=== PATIENT | female | born 1955 | race Caucasian/White ===

== ENCOUNTER 2017-06-03 20:00 | Inpatient (IN) | payer MEDICARE ==
[2017-06-03 20:58] VITALS: BP 125/67
[2017-06-04] MEDS: Escitalopram Oxalate 5 mg Tab PO SCH (08:18)
[2017-06-04] MEDS ORDERED: Maalox 30 mL Cup PO PRN (15:57)
[2017-06-04] MEDS ORDERED: Magnesium Hydroxide (MOM) 30 mL UDC PO PRN (15:57)
[2017-06-04] MEDS ORDERED: Non-Formulary Item 1 EA (Glucagon,Human Recombinant [Glucagon Emergency Kit] 1 MG) IJ PRN (15:57)
[2017-06-04] MEDS ORDERED: Albuterol/Ipratropium Neb 3 ML AERS HHN PRN (15:57)
[2017-06-04] MEDS ORDERED: Non-Formulary Item 1 EA (Rivaroxaban [Xarelto] 15 MG) PO SCH (17:00)
[2017-06-04] MEDS: INSULIN ASPART SLIDING SCALE 100 UNITS/ML UNIT SUBQ SCH ×2 (17:05→21:28)
[2017-06-04] MEDS ORDERED: GLUCAGON HCl 1 MG KIT IM PRN (17:42)
--- NOTE | 2017-06-04 18:48 | History & Physical ---
ADMIT DATE: 06/04/2017 HISTORY OF PRESENT ILLNESS: The patient is a 62-year-old female with long history of hypertension, diabetes mellitus, coronary artery disease, psychosis, admitted to [facility] Department for evaluation and treatment. The patient denies any chest pain, shortness of breath, nausea, vomiting, fever or chills. PAST MEDICAL HISTORY: Significant for hypertension, coronary artery disease, asthma, obesity, psychosis. PAST SURGICAL HISTORY: Tonsillectomy, cholecystectomy, hysterectomy, appendectomy, coronary artery bypass. ALLERGIES: She is allergic to ZITHROMAX, CODEINE, HYDROMORPHONE. SOCIAL HISTORY: No smoking, no alcohol or drug use. FAMILY HISTORY: Noncontributory. REVIEW OF SYSTEMS: RENAL SYSTEM: No history of chronic renal disorder. CARDIOVASCULAR SYSTEM: She has history of coronary artery disease and hypertension. ENDOCRINE SYSTEM: She has history of diabetes mellitus, no thyroid problem. GASTROINTESTINAL: No upper or lower gastrointestinal bleed. NEUROLOGICAL: She has no seizure disorder. MUSCULOSKELETAL SYSTEM: No muscular dystrophy. HEMATOLOGIC SYSTEM: No bleeding tendancies. RESPIRATORY SYSTEM: No asthma. GENITOURINARY: No dysuria or hematuria. PHYSICAL EXAMINATION: GENERAL: She is awake, alert, oriented. VITAL SIGNS: Temperature 98.3, heart rate 61, blood pressure 125/67. HEENT: Normocephalic. Pupils reacting to light and accommodation. Sclerae clear. NECK: Supple. Negative for lymphadenopathy, JVD or bruit. CHEST: Entry of air bilaterally normal. No rhonchi or wheezing. HEART: S1, S2 normal. No murmur or gallop rhythm. ABDOMEN: Soft, bowel sounds positive. EXTREMITIES: No edema. BACK: No tenderness SKIN: Significant for dryness of both feet. BREASTS, PELVIC, AND RECTAL: Exam done by primary physician. NEUROLOGIC: She is awake, alert, oriented. No focal motor or sensory deficit. Cranial nerves 2 through 12 is intact. ASSESSMENT: 1. Diabetes mellitus. 2. Hypertension. 3. Coronary artery disease. 4. Psychosis. PLAN: The patient admitted to the hospital under Dr. Diaz's service. Medical problem to be addressed during hospitalization is psychosis. Medical problems to be addressed at discharge are diabetes mellitus, hypertension, coronary artery disease. The patient is medically stable for activity. Thank you Dr. Diaz for asking me to see your patient. [facility]# [id number]
[2017-06-04] MEDS: Insulin Detemir 100 units/mL 10mL Vial SUBQ SCH (21:28)
[2017-06-05] MEDS: INSULIN ASPART SLIDING SCALE 100 UNITS/ML UNIT SUBQ SCH ×4 (07:04→21:26)
[2017-06-05] MEDS ORDERED: Non-Formulary Item 1 EA (Multivit,Th Iron,Other Min [Thera-M] 1 TAB) PO SCH (09:00)
[2017-06-05] MEDS: Escitalopram Oxalate 5 mg Tab PO SCH (09:24)
[2017-06-05] MEDS: Aspirin 81mg Chewable Tab PO SCH (09:24)
[2017-06-05] MEDS: Multivitamin w/ Minerals Tab PO SCH (09:25)
--- NOTE | 2017-06-05 14:00 | Internal Medicine Prog Note ---
Internal Medicine Subjective - Subjective Service Date: 06/05/17 Patient seen and examined:: with staff Patient is:: awake, verbal, in bed, confused Per staff patient has:: no adverse event (SHE FEELS BETTER) Internal Medicine Objective - Results Recent Labs: Laboratory Last Values POC Glucose 143 MG/DL (70 - 105) H 06/03/17 20:55 - Physical Exam Vitals and I&O: Vital Signs Temp 98.3 F 06/04/17 05:55 Pulse 74 06/04/17 20:37 Resp 18 06/04/17 20:37 BP 161/70 06/04/17 16:45 Pulse Ox 97 06/04/17 20:37 Intake & Output 06/04/17 06/05/17 06/05/17 18:59 06:59 18:59 Intake Total 400 120 Balance 400 120 Intake: Oral 400 120 Other: # Voids 1 3 Active Medications: Current Medications Acetaminophen (Tylenol) 650 mg PO Q6H PRN PRN Reason: mild pain (1-3) Stop: 08/03/17 15:56 Last Admin: 06/04/17 16:43 Dose: 650 mg Al Hydrox/Mg Hydrox/Simethicone (Maalox) 30 ml PO Q4H PRN PRN Reason: Heartburn Stop: 08/03/17 15:56 Albuterol/Ipratropium (Duoneb Neb) 3 ml HHN Q4HRT PRN PRN Reason: Wheezing Stop: 08/03/17 15:56 Aspirin (Aspirin Chewable) 81 mg PO DAILY [facility] Stop: 08/04/17 08:59 Last Admin: 06/05/17 09:24 Dose: Not Given Bisacodyl (Dulcolax 10 Mg Supp) 10 mg RC DAILY PRN PRN Reason: Constipation Stop: 08/03/17 15:56 Carvedilol (Coreg) 6.25 mg PO BID [facility] Stop: 08/03/17 16:59 Last Admin: 06/05/17 13:40 Dose: Not Given Clopidogrel Bisulfate (Plavix) 75 mg PO DAILY [facility] Stop: 08/04/17 08:59 Last Admin: 06/05/17 09:24 Dose: Not Given Docusate Sodium (Colace) 100 mg PO DAILY PRN PRN Reason: Constipation Stop: 08/03/17 15:56 Escitalopram Oxalate (Lexapro) 5 mg PO DAILY [facility] PRN Reason: Protocol Stop: 08/03/17 08:59 Last Admin: 06/05/17 09:24 Dose: Not Given Fluocinonide (Lidex 0.05%) 1 appl TP BID [facility] Stop: 08/03/17 16:59 Last Admin: 06/05/17 13:41 Dose: Not Given Glucagon (Glucagen) 1 mg IM PRN PRN PRN Reason: LOW BLOOD SUGAR Stop: 08/03/17 17:41 Insulin Aspart (Novolog Insulin Sliding Scale) 0 units SUBQ ACHS [facility] PRN Reason: Protocol Stop: 08/03/17 16:29 Last Admin: 06/05/17 11:45 Dose: Not Given Insulin Detemir (Levemir Insulin) 35 units SUBQ HS [facility] PRN Reason: Protocol Stop: 08/03/17 20:59 Last Admin: 06/04/17 21:28 Dose: Not Given Lisinopril (Zestril) 5 mg PO DAILY [facility] Stop: 08/03/17 16:08 Last Admin: 06/05/17 13:41 Dose: Not Given Magnesium Hydroxide (Milk Of Magnesia) 30 ml PO DAILY PRN PRN Reason: Constipation Stop: 08/03/17 15:56 Nitroglycerin (Nitrostat) 0.4 mg SL Q5MIN PRN PRN Reason: Chest Pain Stop: 08/03/17 15:56 Rivaroxaban (Xarelto) 15 mg PO DAILY [facility] Stop: 08/04/17 08:59 Last Admin: 06/05/17 09:25 Dose: Not Given General: alert HEENT: NC/AT, PERRLA, EOMI, anicteric sclerae, throat clear Neck: Supple, No JVD, No thyromegaly, +2 carotid pulse wo bruit, No LAD, + JVD Lungs: CTAB Cardiovascular: RRR, Normal S1, Normal S2 Abdomen: non-tender, non-distended Neurological: no change Internal Medicine Assmt/Plan - Assessment Assessment: 1.DM. 2.HTN. 3.CAD. 4.PSYCHOSIS - Plan Plan: CONTINUE ON CURRENT MEDICATION AND DIET.
[2017-06-05] MEDS: Insulin Detemir 100 units/mL 10mL Vial SUBQ SCH (21:36)
--- NOTE | 2017-06-06 02:13 | Psychosocial Evaluation ---
DATE OF SERVICE: 06/03/2017 PSYCHIATRIC INITIAL EVALUATION AND MENTAL STATUS EXAM PATIENT'S AGE: 62-year-old. SEX: Female. PHYSICIAN: Arina Diaz MD, MPH CHIEF COMPLAINT: Aggressive and combative behavior. HISTORY OF PRESENT ILLNESS: The patient is a 62-year-old female who was admitted to the hospital because of increased agitation and because of aggressive behavior. The patient has been aggressive towards nursing staff and has been resisting care and refusing treatment and also refusing to [facility] or drink [facility]. She also has been difficult to follow directions and resisting to hear. The patient also has a history of depression and has been in depressed and angry mood lately. The patient is still in angry mood and resisting care and is depressed. She also has been complaining of severe pain and has been taking morphine and also the patient is diabetic and has been irritable and also refusing her medical treatment. The patient was extremely agitated and irritable and the patient has to be given Zyprexa 10 mg and Ativan 1 mg prior to her admission. The patient was then brought into [facility]. The patient currently is sedated and calm and she was not able to answer all of my questions because of her sedation. She was still refusing treatment at times. PAST PSYCHIATRIC HISTORY: The patient has history of depression. PAST MEDICAL HISTORY: The patient has history of diabetes mellitus as well as chronic obstructive pulmonary disease, anemia and gastroesophageal reflux disease and hypertension. SOCIAL HISTORY: Not known alcohol or street drug use. ALLERGIES: Codeine, Dilaudid, morphine, and erythromycin. MENTAL STATUS EXAMINATION: The patient appears slightly older than her stated age. Disheveled. Currently sedated and I was not able to get much of the information from the patient because of her sedation. Did not answer question regarding suicide or homicide or regarding hallucinations or delusions. The patient is sedated and unable to assess her orientation or memory at this time. Poor insight and she was refusing to eat or to take medications. Poor judgment and she was fighting and violent with staff earlier. ASSESSMENT: Primary diagnosis: Major depression, severe, recurrent, with psychotic features. TREATMENT PLAN: We will continue monitoring her condition and her behavior closely. Also, we will restart Lexapro. Also, we will work on her anger and irritability and we will continue to follow up. ESTIMATED LENGTH OF STAY: 5-7 days. THE PATIENT'S STRENGTHS AND WEAKNESSES: The patient's strength is not clear at this time. Weaknesses: Her poor impulse control and uncooperative with treatment and refusing medications and to eat. AFTER DISCHARGE PLAN: The patient will return to her previous placement. Otherwise, she will need placement. Outpatient treatment and followup will continue as an outpatient. CRITERIA FOR DISCHARGE: The patient will not be agitated or psychotic and will stabilize psychotropic medications and will establish outpatient treatment plans. [facility]# [id number]
[2017-06-06] MEDS: INSULIN ASPART SLIDING SCALE 100 UNITS/ML UNIT SUBQ SCH ×3 (06:29→22:51)
[2017-06-06] MEDS: Aspirin 81mg Chewable Tab PO SCH (10:49)
[2017-06-06] MEDS: Escitalopram Oxalate 5 mg Tab PO SCH (10:50)
[2017-06-06] MEDS: Multivitamin w/ Minerals Tab PO SCH (10:51)
--- NOTE | 2017-06-06 16:14 | Progress Notes ---
DATE: SUBJECTIVE: Chart reviewed and the patient interviewed. Also discussed the patient's condition with the staff and reviewed records and labs. The patient continued to be extremely agitated and extremely paranoid. The patient also still in angry and in irritable mood. She also is still guarded and withdrawn and wants to be left alone and is refusing care and treatment and refusing medications. She also is still disheveled and irritable and uncooperative with the staff. The patient needs lots of redirections. ASSESSMENT: The patient is still combative and depressed and can be dangerous to others. TREATMENT PLAN: We will continue to monitor her behavior and her condition closely. Also, continue to work on her irritability and denial of her illness and we will continue to work on her compliance with medications. Also, we will place the patient on 5250 hold for grave disability. JOB# [id number]
--- NOTE | 2017-06-06 17:55 | General Progress Note ---
Subjective - Review of Systems Service Date: 06/06/17 Subjective: awake and alert no distress Objective - Results Recent Labs: Laboratory Last Values POC Glucose 143 MG/DL (70 - 105) H 06/03/17 20:55 - Physical Exam Vitals and I&O: Vital Signs Temp 97.7 F 06/06/17 17:35 Pulse 92 06/06/17 17:35 Resp 20 06/06/17 17:35 BP 150/83 06/06/17 17:35 Pulse Ox 95 06/06/17 17:35 Active Medications: Current Medications Acetaminophen (Tylenol) 650 mg PO Q6H PRN PRN Reason: mild pain (1-3) Stop: 08/03/17 15:56 Last Admin: 06/04/17 16:43 Dose: 650 mg Al Hydrox/Mg Hydrox/Simethicone (Maalox) 30 ml PO Q4H PRN PRN Reason: Heartburn Stop: 08/03/17 15:56 Albuterol/Ipratropium (Duoneb Neb) 3 ml HHN Q4HRT PRN PRN Reason: Wheezing Stop: 08/03/17 15:56 Aspirin (Aspirin Chewable) 81 mg PO DAILY [facility] Stop: 08/04/17 08:59 Last Admin: 06/06/17 10:49 Dose: Not Given Bisacodyl (Dulcolax 10 Mg Supp) 10 mg RC DAILY PRN PRN Reason: Constipation Stop: 08/03/17 15:56 Carvedilol (Coreg) 6.25 mg PO BID [facility] Stop: 08/03/17 16:59 Last Admin: 06/06/17 16:26 Dose: 6.25 mg Clopidogrel Bisulfate (Plavix) 75 mg PO DAILY [facility] Stop: 08/04/17 08:59 Last Admin: 06/06/17 10:50 Dose: Not Given Docusate Sodium (Colace) 100 mg PO DAILY PRN PRN Reason: Constipation Stop: 08/03/17 15:56 Escitalopram Oxalate (Lexapro) 5 mg PO DAILY [facility] PRN Reason: Protocol Stop: 08/03/17 08:59 Last Admin: 06/06/17 10:50 Dose: Not Given Fluocinonide (Lidex 0.05%) 1 appl TP BID [facility] Stop: 08/03/17 16:59 Last Admin: 06/06/17 10:50 Dose: Not Given Glucagon (Glucagen) 1 mg IM PRN PRN PRN Reason: LOW BLOOD SUGAR Stop: 08/03/17 17:41 Insulin Aspart (Novolog Insulin Sliding Scale) 0 units SUBQ ACHS [facility] PRN Reason: Protocol Stop: 08/03/17 16:29 Last Admin: 06/06/17 12:08 Dose: Not Given Insulin Detemir (Levemir Insulin) 35 units SUBQ HS [facility] PRN Reason: Protocol Stop: 08/03/17 20:59 Last Admin: 06/05/17 21:36 Dose: 35 units Lisinopril (Zestril) 5 mg PO DAILY [facility] Stop: 08/03/17 16:08 Last Admin: 06/06/17 10:50 Dose: Not Given Magnesium Hydroxide (Milk Of Magnesia) 30 ml PO DAILY PRN PRN Reason: Constipation Stop: 08/03/17 15:56 Nitroglycerin (Nitrostat) 0.4 mg SL Q5MIN PRN PRN Reason: Chest Pain Stop: 08/03/17 15:56 Rivaroxaban (Xarelto) 15 mg PO DAILY [facility] Stop: 08/04/17 08:59 Last Admin: 06/06/17 10:51 Dose: Not Given General: Alert, No acute distress HEENT: Atraumatic, PERRLA Neck: Supple, JVD Cardiovascular: Regular rate, Normal S1, Normal S2 Lungs: Clear to auscultation Abdomen: Bowel sounds Assessment/Plan - Assessment Assessment: 1.DM. 2.HTN. 3.CAD. 4.PSYCHOSIS - Plan Plan: cont current treatment
[2017-06-06] MEDS: Insulin Detemir 100 units/mL 10mL Vial SUBQ SCH (22:43)
[2017-06-07] MEDS: INSULIN ASPART SLIDING SCALE 100 UNITS/ML UNIT SUBQ SCH ×4 (07:02→21:00)
[2017-06-07] MEDS: Aspirin 81mg Chewable Tab PO SCH (09:00)
[2017-06-07] MEDS: Escitalopram Oxalate 5 mg Tab PO SCH (09:12)
[2017-06-07] MEDS: Multivitamin w/ Minerals Tab PO SCH (09:13)
--- NOTE | 2017-06-07 13:47 | General Progress Note ---
Subjective - Review of Systems Service Date: 06/07/17 Subjective: awake and alert no distress Objective - Results Recent Labs: Laboratory Last Values POC Glucose 143 MG/DL (70 - 105) H 06/03/17 20:55 - Physical Exam Vitals and I&O: Vital Signs Temp 97.7 F 06/06/17 17:35 Pulse 72 06/07/17 09:12 Resp 18 06/07/17 07:21 BP 113/77 06/07/17 09:12 Pulse Ox 95 06/07/17 07:20 Active Medications: Current Medications Acetaminophen (Tylenol) 650 mg PO Q6H PRN PRN Reason: mild pain (1-3) Stop: 08/03/17 15:56 Last Admin: 06/04/17 16:43 Dose: 650 mg Al Hydrox/Mg Hydrox/Simethicone (Maalox) 30 ml PO Q4H PRN PRN Reason: Heartburn Stop: 08/03/17 15:56 Albuterol/Ipratropium (Duoneb Neb) 3 ml HHN Q4HRT PRN PRN Reason: Wheezing Stop: 08/03/17 15:56 Aspirin (Aspirin Chewable) 81 mg PO DAILY [facility] Stop: 08/04/17 08:59 Last Admin: 06/07/17 09:00 Dose: 81 mg Bisacodyl (Dulcolax 10 Mg Supp) 10 mg RC DAILY PRN PRN Reason: Constipation Stop: 08/03/17 15:56 Carvedilol (Coreg) 6.25 mg PO BID [facility] Stop: 08/03/17 16:59 Last Admin: 06/07/17 09:00 Dose: 6.25 mg Clopidogrel Bisulfate (Plavix) 75 mg PO DAILY [facility] Stop: 08/04/17 08:59 Last Admin: 06/07/17 09:12 Dose: 75 mg Docusate Sodium (Colace) 100 mg PO DAILY PRN PRN Reason: Constipation Stop: 08/03/17 15:56 Escitalopram Oxalate (Lexapro) 5 mg PO DAILY [facility] PRN Reason: Protocol Stop: 08/03/17 08:59 Last Admin: 06/07/17 09:12 Dose: 5 mg Fluocinonide (Lidex 0.05%) 1 appl TP BID [facility] Stop: 08/03/17 16:59 Last Admin: 06/07/17 08:59 Dose: 1 appl Glucagon (Glucagen) 1 mg IM PRN PRN PRN Reason: LOW BLOOD SUGAR Stop: 08/03/17 17:41 Insulin Aspart (Novolog Insulin Sliding Scale) 0 units SUBQ ACHS [facility] PRN Reason: Protocol Stop: 08/03/17 16:29 Last Admin: 06/07/17 07:02 Dose: Not Given Insulin Detemir (Levemir Insulin) 35 units SUBQ HS [facility] PRN Reason: Protocol Stop: 08/03/17 20:59 Last Admin: 06/06/17 22:43 Dose: 35 units Lisinopril (Zestril) 5 mg PO DAILY [facility] Stop: 08/03/17 16:08 Last Admin: 06/07/17 09:12 Dose: 5 mg Magnesium Hydroxide (Milk Of Magnesia) 30 ml PO DAILY PRN PRN Reason: Constipation Stop: 08/03/17 15:56 Nitroglycerin (Nitrostat) 0.4 mg SL Q5MIN PRN PRN Reason: Chest Pain Stop: 08/03/17 15:56 Rivaroxaban (Xarelto) 15 mg PO DAILY [facility] Stop: 08/04/17 08:59 Last Admin: 06/07/17 09:13 Dose: 15 mg General: Alert, No acute distress HEENT: Atraumatic, PERRLA Neck: Supple, JVD Cardiovascular: Regular rate, Normal S1, Normal S2 Lungs: Clear to auscultation Abdomen: Bowel sounds Assessment/Plan - Assessment Assessment: 1.DM. 2.HTN. 3.CAD. 4.PSYCHOSIS - Plan Plan: cont current treatment
[2017-06-07] MEDS: Insulin Detemir 100 units/mL 10mL Vial SUBQ SCH (21:44)
[2017-06-08] MEDS: INSULIN ASPART SLIDING SCALE 100 UNITS/ML UNIT SUBQ SCH ×4 (06:57→20:56)
[2017-06-08] MEDS: Escitalopram Oxalate 5 mg Tab PO SCH (10:14)
[2017-06-08] MEDS: Aspirin 81mg Chewable Tab PO SCH (10:14)
[2017-06-08] MEDS: Multivitamin w/ Minerals Tab PO SCH (10:15)
--- NOTE | 2017-06-08 10:48 | Progress Notes ---
DATE: SUBJECTIVE: Chart reviewed. The patient interviewed. Also discussed the patient's condition with the staff and reviewed records and labs. The patient continues to be ____ easily irritable and easily agitated ____ with the staff and also said the patient is trying to harm herself, sometimes ____. She also is still combative and she is still aggressive and refused to take her medications. In spite of explaining to the patient the importance of the medicine and benefits of ____ and the patient is still resisting care and in irritable mood. ASSESSMENT: The patient is still confused and forgetful. TREATMENT PLAN: We will continue monitoring her behavior and her condition closely and continue to follow up. [facility]# [id number]
[2017-06-08] MEDS: Insulin Detemir 100 units/mL 10mL Vial SUBQ SCH (20:56)
--- NOTE | 2017-06-08 23:51 | Internal Medicine Prog Note ---
Internal Medicine Subjective - Subjective Service Date: 06/08/17 Patient seen and examined:: without staff Patient is:: awake, verbal, in bed, confused Per staff patient has:: no adverse event (SHE FEELS BETTER) Internal Medicine Objective - Results Recent Labs: Laboratory Last Values POC Glucose 161 MG/DL (70 - 105) H 06/08/17 20:41 - Physical Exam Vitals and I&O: Vital Signs Temp 98.9 F 06/08/17 19:22 Pulse 91 06/08/17 19:22 Resp 20 06/08/17 19:22 BP 155/66 06/08/17 19:22 Pulse Ox 94 06/08/17 19:22 Active Medications: Current Medications Acetaminophen (Tylenol) 650 mg PO Q6H PRN PRN Reason: mild pain (1-3) Stop: 08/03/17 15:56 Last Admin: 06/04/17 16:43 Dose: 650 mg Al Hydrox/Mg Hydrox/Simethicone (Maalox) 30 ml PO Q4H PRN PRN Reason: Heartburn Stop: 08/03/17 15:56 Albuterol/Ipratropium (Duoneb Neb) 3 ml HHN Q4HRT PRN PRN Reason: Wheezing Stop: 08/03/17 15:56 Aspirin (Aspirin Chewable) 81 mg PO DAILY [facility] Stop: 08/04/17 08:59 Last Admin: 06/08/17 10:14 Dose: Not Given Bisacodyl (Dulcolax 10 Mg Supp) 10 mg RC DAILY PRN PRN Reason: Constipation Stop: 08/03/17 15:56 Carvedilol (Coreg) 6.25 mg PO BID [facility] Stop: 08/03/17 16:59 Last Admin: 06/08/17 17:46 Dose: Not Given Clopidogrel Bisulfate (Plavix) 75 mg PO DAILY [facility] Stop: 08/04/17 08:59 Last Admin: 06/08/17 10:14 Dose: Not Given Docusate Sodium (Colace) 100 mg PO DAILY PRN PRN Reason: Constipation Stop: 08/03/17 15:56 Escitalopram Oxalate (Lexapro) 5 mg PO DAILY [facility] PRN Reason: Protocol Stop: 08/03/17 08:59 Last Admin: 06/08/17 10:14 Dose: Not Given Fluocinonide (Lidex 0.05%) 1 appl TP BID [facility] Stop: 08/03/17 16:59 Last Admin: 06/08/17 17:46 Dose: Not Given Glucagon (Glucagen) 1 mg IM PRN PRN PRN Reason: LOW BLOOD SUGAR Stop: 08/03/17 17:41 Insulin Aspart (Novolog Insulin Sliding Scale) 0 units SUBQ ACHS [facility] PRN Reason: Protocol Stop: 08/03/17 16:29 Last Admin: 06/08/17 20:56 Dose: Not Given Insulin Detemir (Levemir Insulin) 35 units SUBQ HS [facility] PRN Reason: Protocol Stop: 08/03/17 20:59 Last Admin: 06/08/17 20:56 Dose: Not Given Lisinopril (Zestril) 5 mg PO DAILY [facility] Stop: 08/03/17 16:08 Last Admin: 06/08/17 10:14 Dose: Not Given Magnesium Hydroxide (Milk Of Magnesia) 30 ml PO DAILY PRN PRN Reason: Constipation Stop: 08/03/17 15:56 Nitroglycerin (Nitrostat) 0.4 mg SL Q5MIN PRN PRN Reason: Chest Pain Stop: 08/03/17 15:56 Ondansetron HCl (Zofran Odt) 4 mg PO Q6H PRN PRN Reason: Nausea / Vomiting Stop: 08/06/17 16:08 Rivaroxaban (Xarelto) 15 mg PO DAILY [facility] Stop: 08/04/17 08:59 Last Admin: 06/08/17 10:15 Dose: Not Given General: alert HEENT: NC/AT, PERRLA, EOMI, anicteric sclerae, throat clear Neck: Supple, No JVD, No thyromegaly, +2 carotid pulse wo bruit, No LAD, + JVD Lungs: CTAB Cardiovascular: RRR, Normal S1, Normal S2 Abdomen: non-tender, non-distended Neurological: no change Internal Medicine Assmt/Plan - Assessment Assessment: 1.DM. 2.HTN. 3.CAD. 4.PSYCHOSIS - Plan Plan: CONTINUE ON CURRENT MEDICATION AND DIET. Nutritional Asmnt/Malnutr-PDOC - Dietary Evaluation Malnutrition Findings (Please click <Entered> for more info): Nutritional Asmnt/Malnutrition Start: 06/08/17 14: 59 Text: Status: Complete Freq: Document 06/08/17 14:59 LCLEEG (Rec: 06/08/17 15:14 [email or web address] [id number]) Nutritional Asmnt/Malnutrition Patient General Information Nutritional Screening Moderate Risk Diagnosis psychosis Pertinent Medical Hx/Surgical Hx THN, CAD, asthma, obesity, psychosis, tonsillectomy, cholecystectomy, hysterectomy, appendectomy, conorary artery bypass Subjective Information Pt seen resting in bed at time of visit. Spoke with RN, RN reported pt had 2 episodes of vomiting yetserday d/t stomach pain, no vomiting today but still had nausea. Per pt she had BM a week ago. Pt refused to eat or drinking anything, refused meds. MD notified by RN. Current Diet Order/ Nutrition Support CCHO 60gm Pertinent Medications glucagen, novolog, levemir Pertinent Labs 06/03 POC 143 Nutritional Hx/Data Height 1.63 m Height (Calculated Centimeters) 162.6 Current Weight (lbs) 103.873 kg Weight (Calculated Kilograms) 103.9 Weight (Calculated Grams) 837814.7 [place] Body Weight 120 % [place] Body Weight 190 Body Mass Index (BMI) 39.3 Weight Status Obese GI Symptoms GI Symptoms Nausea Vomitting Last BM a week ago per pt Difficult in: None Skin Integrity/Comment: blakened to left dosal foot, rash, dryness, dryness Current %PO Poor (25-49%) Estimated Nutritional Goals BEE in Kcals: Adj wt of IBW Calories/Kcals/Kg 25-30 Kcals Calculated 2982-3219 Protein: Adj wt of IBW Protein g/k-1.2 Protein Calculated 67-80 Fluid: ml 1675-2010ml (1ml/kcal) Nutritional Problem 1. Problem Problem inadequate food/fluid intake Etiology N/V, stomach pain Signs/Symptoms: pt refusing oral intake x 2 days Malnutrition Alert Protein-Calorie Malnutrition N/A Is there a minimum of two criteria No selected? Query Text:Check all the applicable criteria. A minimum of two criteria are recommended for diagnosis of either severe or non-severe malnutrition. Intervention/Recommendation Comments 1. Recommend to give pt clear liquid at this time d/t N/V. 2. Monitor PO intake, GI function, wt, labs and skin integrity 3. F/U as high risk in 2-3 days, 06/10-06/11 Expected Outcomes/Goals Expected Outcomes/Goals 1. PO intake to meet at least 75% of nutritional needs, no N /V 2. Wt stability, skin to remain intact, labs to approach WNL.
[2017-06-09] MEDS: INSULIN ASPART SLIDING SCALE 100 UNITS/ML UNIT SUBQ SCH ×4 (06:58→21:26)
[2017-06-09] MEDS: Aspirin 81mg Chewable Tab PO SCH (10:14)
[2017-06-09] MEDS: Escitalopram Oxalate 5 mg Tab PO SCH (10:17)
[2017-06-09] MEDS: Multivitamin w/ Minerals Tab PO SCH (10:24)
--- NOTE | 2017-06-09 19:58 | Internal Medicine Prog Note ---
Internal Medicine Subjective - Subjective Service Date: 06/09/17 Patient seen and examined:: with staff (SHE IS DOING BETTER.) Patient is:: awake, verbal, in bed, confused Per staff patient has:: no adverse event (SHE FEELS BETTER) Internal Medicine Objective - Results Recent Labs: Laboratory Last Values POC Glucose 122 MG/DL (70 - 105) H 06/09/17 05:37 - Physical Exam Vitals and I&O: Vital Signs Temp 98.8 F 06/09/17 07:04 Pulse 77 06/09/17 10:25 Resp 18 06/09/17 07:12 BP 136/58 06/09/17 10:25 Pulse Ox 94 06/09/17 07:12 Intake & Output 06/09/17 06/09/17 06/10/17 06:59 18:59 06:59 Intake Total 320 420 Balance 320 420 Intake: Oral 320 420 Other: # Voids 1 100 Active Medications: Current Medications Acetaminophen (Tylenol) 650 mg PO Q6H PRN PRN Reason: mild pain (1-3) Stop: 08/03/17 15:56 Last Admin: 06/04/17 16:43 Dose: 650 mg Al Hydrox/Mg Hydrox/Simethicone (Maalox) 30 ml PO Q4H PRN PRN Reason: Heartburn Stop: 08/03/17 15:56 Albuterol/Ipratropium (Duoneb Neb) 3 ml HHN Q4HRT PRN PRN Reason: Wheezing Stop: 08/03/17 15:56 Aspirin (Aspirin Chewable) 81 mg PO DAILY V[facility]ICIUS Stop: 08/04/17 08:59 Last Admin: 06/09/17 10:14 Dose: 81 mg Bisacodyl (Dulcolax 10 Mg Supp) 10 mg RC DAILY PRN PRN Reason: Constipation Stop: 08/03/17 15:56 Carvedilol (Coreg) 6.25 mg PO BID [facility] Stop: 08/03/17 16:59 Last Admin: 06/09/17 18:18 Dose: Not Given Clopidogrel Bisulfate (Plavix) 75 mg PO DAILY V[facility]ICIUS Stop: 08/04/17 08:59 Last Admin: 06/09/17 10:13 Dose: 75 mg Docusate Sodium (Colace) 100 mg PO DAILY PRN PRN Reason: Constipation Stop: 08/03/17 15:56 Escitalopram Oxalate (Lexapro) 5 mg PO DAILY V[facility]ICIUS PRN Reason: Protocol Stop: 08/03/17 08:59 Last Admin: 06/09/17 10:17 Dose: 5 mg Fluocinonide (Lidex 0.05%) 1 appl TP BID [facility] Stop: 08/03/17 16:59 Last Admin: 06/09/17 18:18 Dose: Not Given Glucagon (Glucagen) 1 mg IM PRN PRN PRN Reason: LOW BLOOD SUGAR Stop: 08/03/17 17:41 Insulin Aspart (Novolog Insulin Sliding Scale) 0 units SUBQ ACHS VINICIUS PRN Reason: Protocol Stop: 08/03/17 16:29 Last Admin: 06/09/17 16:14 Dose: Not Given Insulin Detemir (Levemir Insulin) 35 units SUBQ HS VINICIUS PRN Reason: Protocol Stop: 08/03/17 20:59 Last Admin: 06/08/17 20:56 Dose: Not Given Lisinopril (Zestril) 5 mg PO DAILY [facility] Stop: 08/03/17 16:08 Last Admin: 06/09/17 10:25 Dose: Not Given Magnesium Hydroxide (Milk Of Magnesia) 30 ml PO DAILY PRN PRN Reason: Constipation Stop: 08/03/17 15:56 Nitroglycerin (Nitrostat) 0.4 mg SL Q5MIN PRN PRN Reason: Chest Pain Stop: 08/03/17 15:56 Ondansetron HCl (Zofran Odt) 4 mg PO Q6H PRN PRN Reason: Nausea / Vomiting Stop: 08/06/17 16:08 Rivaroxaban (Xarelto) 15 mg PO DAILY [facility] Stop: 08/04/17 08:59 Last Admin: 06/09/17 10:14 Dose: 15 mg General: alert HEENT: NC/AT, PERRLA, EOMI, anicteric sclerae, throat clear Neck: Supple, No JVD, No thyromegaly, +2 carotid pulse wo bruit, No LAD, + JVD Lungs: CTAB Cardiovascular: RRR, Normal S1, Normal S2 Abdomen: non-tender, non-distended Neurological: no change Internal Medicine Assmt/Plan - Assessment Assessment: 1.DM. 2.HTN. 3.CAD. 4.PSYCHOSIS - Plan Plan: CONTINUE ON CURRENT MEDICATION AND DIET. Nutritional Asmnt/Malnutr-PDOC - Dietary Evaluation Malnutrition Findings (Please click <Entered> for more info): Nutritional Asmnt/Malnutrition Start: 06/08/17 14: 59 Text: Status: Complete Freq: Document 06/08/17 14:59 MELODY (Rec: 06/08/17 15:14 [email or web address]) Nutritional Asmnt/Malnutrition Patient General Information Nutritional Screening Moderate Risk Diagnosis psychosis Pertinent Medical Hx/Surgical Hx THN, CAD, asthma, obesity, psychosis, tonsillectomy, cholecystectomy, hysterectomy, appendectomy, conorary artery bypass Subjective Information Pt seen resting in bed at time of visit. Spoke with RN, RN reported pt had 2 episodes of vomiting yetserday d/t stomach pain, no vomiting today but still had nausea. Per pt she had BM a week ago. Pt refused to eat or drinking anything, refused meds. MD notified by RN. Current Diet Order/ Nutrition Support CCHO 60gm Pertinent Medications glucagen, novolog, levemir Pertinent Labs 06/03 POC 143 Nutritional Hx/Data Height 1.63 m Height (Calculated Centimeters) 162.6 Current Weight (lbs) 103.873 kg Weight (Calculated Kilograms) 103.9 Weight (Calculated Grams) 706595.7 [place] Body Weight 120 % [place] Body Weight 190 Body Mass Index (BMI) 39.3 Weight Status Obese GI Symptoms GI Symptoms Nausea Vomitting Last BM a week ago per pt Difficult in: None Skin Integrity/Comment: blakened to left dosal foot, rash, dryness, dryness Current %PO Poor (25-49%) Estimated Nutritional Goals BEE in Kcals: Adj wt of IBW Calories/Kcals/Kg 25-30 Kcals Calculated 5020-5612 Protein: Adj wt of IBW Protein g/k-1.2 Protein Calculated 67-80 Fluid: ml 1675-2010ml (1ml/kcal) Nutritional Problem 1. Problem Problem inadequate food/fluid intake Etiology N/V, stomach pain Signs/Symptoms: pt refusing oral intake x 2 days Malnutrition Alert Protein-Calorie Malnutrition N/A Is there a minimum of two criteria No selected? Query Text:Check all the applicable criteria. A minimum of two criteria are recommended for diagnosis of either severe or non-severe malnutrition. Intervention/Recommendation Comments 1. Recommend to give pt clear liquid at this time d/t N/V. 2. Monitor PO intake, GI function, wt, labs and skin integrity 3. F/U as high risk in 2-3 days, 06/10-06/11 Expected Outcomes/Goals Expected Outcomes/Goals 1. PO intake to meet at least 75% of nutritional needs, no N /V 2. Wt stability, skin to remain intact, labs to approach WNL.
[2017-06-09] MEDS: Insulin Detemir 100 units/mL 10mL Vial SUBQ SCH (21:26)
[2017-06-10] MEDS: INSULIN ASPART SLIDING SCALE 100 UNITS/ML UNIT SUBQ SCH ×4 (06:45→21:33)
--- NOTE | 2017-06-10 07:10 | Progress Notes ---
DATE: 06/07/2017 SUBJECTIVE: Chart reviewed and the patient interviewed. Also discussed the patient's condition with the staff and reviewed records and labs. The patient is still actively hallucinating and talking to herself. The patient also is still easily agitated. She also is staying on bed secondary to her weakness and obesity. She is still having episodes of yelling and screaming, was difficult to redirect her. She also is still confused and is irritable. The patient refused to get her vital signs taken this morning. ASSESSMENT: The patient is still psychotic and is still agitated. TREATMENT PLAN: We will continue to monitor her behavior and her condition closely. Also, continue adjusting psychotropic medications and working on her aggressive behavior and her agitation. [facility]# [id number]
[2017-06-10] MEDS: Multivitamin w/ Minerals Tab PO SCH (08:38)
[2017-06-10] MEDS: Escitalopram Oxalate 5 mg Tab PO SCH (08:39)
[2017-06-10] MEDS: Aspirin 81mg Chewable Tab PO SCH (08:39)
--- NOTE | 2017-06-10 20:50 | Internal Medicine Prog Note ---
Internal Medicine Subjective - Subjective Service Date: 06/10/17 Patient seen and examined:: with staff Patient is:: awake, verbal, in bed, confused Per staff patient has:: no adverse event (SHE FEELS BETTER) Internal Medicine Objective - Results Recent Labs: Laboratory Last Values POC Glucose 122 MG/DL (70 - 105) H 06/09/17 05:37 - Physical Exam Vitals and I&O: Vital Signs Temp 97.9 F 06/10/17 15:54 Pulse 77 06/10/17 17:31 Resp 18 06/10/17 15:54 BP 118/55 06/10/17 17:31 Pulse Ox 97 06/10/17 15:54 Intake & Output 06/10/17 06/10/17 06/11/17 06:59 18:59 06:59 Intake Total 260 1200 Balance 260 1200 Intake: Oral 260 1200 Other: # Voids 1 1 Active Medications: Current Medications Acetaminophen (Tylenol) 650 mg PO Q6H PRN PRN Reason: mild pain (1-3) Stop: 08/03/17 15:56 Last Admin: 06/04/17 16:43 Dose: 650 mg Al Hydrox/Mg Hydrox/Simethicone (Maalox) 30 ml PO Q4H PRN PRN Reason: Heartburn Stop: 08/03/17 15:56 Albuterol/Ipratropium (Duoneb Neb) 3 ml HHN Q4HRT PRN PRN Reason: Wheezing Stop: 08/03/17 15:56 Aspirin (Aspirin Chewable) 81 mg PO DAILY [facility] Stop: 08/04/17 08:59 Last Admin: 06/10/17 08:39 Dose: 81 mg Bisacodyl (Dulcolax 10 Mg Supp) 10 mg RC DAILY PRN PRN Reason: Constipation Stop: 08/03/17 15:56 Carvedilol (Coreg) 6.25 mg PO BID [facility] Stop: 08/03/17 16:59 Last Admin: 06/10/17 17:31 Dose: 6.25 mg Clopidogrel Bisulfate (Plavix) 75 mg PO DAILY [facility] Stop: 08/04/17 08:59 Last Admin: 06/10/17 08:39 Dose: 75 mg Docusate Sodium (Colace) 100 mg PO DAILY PRN PRN Reason: Constipation Stop: 08/03/17 15:56 Escitalopram Oxalate (Lexapro) 5 mg PO DAILY [facility]US PRN Reason: Protocol Stop: 08/03/17 08:59 Last Admin: 06/10/17 08:39 Dose: 5 mg Fluocinonide (Lidex 0.05%) 1 appl TP BID [facility] Stop: 08/03/17 16:59 Last Admin: 06/10/17 17:31 Dose: 1 appl Glucagon (Glucagen) 1 mg IM PRN PRN PRN Reason: LOW BLOOD SUGAR Stop: 08/03/17 17:41 Insulin Aspart (Novolog Insulin Sliding Scale) 0 units SUBQ ACHS V[facility]ICIUS PRN Reason: Protocol Stop: 08/03/17 16:29 Last Admin: 06/10/17 16:51 Dose: Not Given Insulin Detemir (Levemir Insulin) 35 units SUBQ HS V[facility]ICIUS PRN Reason: Protocol Stop: 08/03/17 20:59 Last Admin: 06/09/17 21:26 Dose: Not Given Lisinopril (Zestril) 5 mg PO DAILY [facility] Stop: 08/03/17 16:08 Last Admin: 06/10/17 08:38 Dose: 5 mg Magnesium Hydroxide (Milk Of Magnesia) 30 ml PO DAILY PRN PRN Reason: Constipation Stop: 08/03/17 15:56 Nitroglycerin (Nitrostat) 0.4 mg SL Q5MIN PRN PRN Reason: Chest Pain Stop: 08/03/17 15:56 Ondansetron HCl (Zofran Odt) 4 mg PO Q6H PRN PRN Reason: Nausea / Vomiting Stop: 08/06/17 16:08 Rivaroxaban (Xarelto) 15 mg PO DAILY [facility] Stop: 08/04/17 08:59 Last Admin: 06/10/17 08:39 Dose: 15 mg General: alert HEENT: NC/AT, PERRLA, EOMI, anicteric sclerae, throat clear Neck: Supple, No JVD, No thyromegaly, +2 carotid pulse wo bruit, No LAD, + JVD Lungs: CTAB Cardiovascular: RRR, Normal S1, Normal S2 Abdomen: non-tender, non-distended Neurological: no change Internal Medicine Assmt/Plan - Assessment Assessment: 1.DM. 2.HTN. 3.CAD. 4.PSYCHOSIS - Plan Plan: CONTINUE ON CURRENT MEDICATION AND DIET. Nutritional Asmnt/Malnutr-PDOC - Dietary Evaluation Malnutrition Findings (Please click <Entered> for more info): Nutritional Asmnt/Malnutrition Start: 06/08/17 14: 59 Text: Status: Complete Freq: Document 06/08/17 14:59 URIEL (Rec: 06/08/17 15:14 URIEL [email or web address]) Nutritional Asmnt/Malnutrition Patient General Information Nutritional Screening Moderate Risk Diagnosis psychosis Pertinent Medical Hx/Surgical Hx THN, CAD, asthma, obesity, psychosis, tonsillectomy, cholecystectomy, hysterectomy, appendectomy, conorary artery bypass Subjective Information Pt seen resting in bed at time of visit. Spoke with RN, RN reported pt had 2 episodes of vomiting yetserday d/t stomach pain, no vomiting today but still had nausea. Per pt she had BM a week ago. Pt refused to eat or drinking anything, refused meds. MD notified by RN. Current Diet Order/ Nutrition Support CCHO 60gm Pertinent Medications glucagen, novolog, levemir Pertinent Labs 06/03 POC 143 Nutritional Hx/Data Height 1.63 m Height (Calculated Centimeters) 162.6 Current Weight (lbs) 103.873 kg Weight (Calculated Kilograms) 103.9 Weight (Calculated Grams) 035464.7 Organ Body Weight 120 % Organ Body Weight 190 Body Mass Index (BMI) 39.3 Weight Status Obese GI Symptoms GI Symptoms Nausea Vomitting Last BM a week ago per pt Difficult in: None Skin Integrity/Comment: blakened to left dosal foot, rash, dryness, dryness Current %PO Poor (25-49%) Estimated Nutritional Goals BEE in Kcals: Adj wt of IBW Calories/Kcals/Kg 25-30 Kcals Calculated 9351-0054 Protein: Adj wt of IBW Protein g/k-1.2 Protein Calculated 67-80 Fluid: ml 1675-2010ml (1ml/kcal) Nutritional Problem 1. Problem Problem inadequate food/fluid intake Etiology N/V, stomach pain Signs/Symptoms: pt refusing oral intake x 2 days Malnutrition Alert Protein-Calorie Malnutrition N/A Is there a minimum of two criteria No selected? Query Text:Check all the applicable criteria. A minimum of two criteria are recommended for diagnosis of either severe or non-severe malnutrition. Intervention/Recommendation Comments 1. Recommend to give pt clear liquid at this time d/t N/V. 2. Monitor PO intake, GI function, wt, labs and skin integrity 3. F/U as high risk in 2-3 days, 06/10-06/11 Expected Outcomes/Goals Expected Outcomes/Goals 1. PO intake to meet at least 75% of nutritional needs, no N /V 2. Wt stability, skin to remain intact, labs to approach WNL.
[2017-06-10] MEDS: Insulin Detemir 100 units/mL 10mL Vial SUBQ SCH (21:33)
--- NOTE | 2017-06-10 23:39 | Progress Notes ---
DATE: SUBJECTIVE: Chart reviewed and the patient interviewed. Also discussed the patient's condition with the staff and reviewed records and labs. The patient is still verbally abusive and she still has episodes of yelling and screaming and she is still easily agitated. The patient also is still in angry mood. She also is still at times refused to eat or drink and also still refused to take medications. The patient also has difficulty following directions. Otherwise, the staff have to monitor her closely because of her agitation and irritability. ASSESSMENT: The patient is still psychotic and aggressive. TREATMENT PLAN: Continue to monitor her behavior and her condition closely. Also, continue to work on her compliance with taking her medications and continue to follow up. [facility]# [id number]
[2017-06-11] MEDS: INSULIN ASPART SLIDING SCALE 100 UNITS/ML UNIT SUBQ SCH ×2 (06:32→11:42)
[2017-06-11] MEDS: Aspirin 81mg Chewable Tab PO SCH (08:43)
[2017-06-11] MEDS: Multivitamin w/ Minerals Tab PO SCH (08:45)
[2017-06-11] MEDS: Escitalopram Oxalate 5 mg Tab PO SCH (08:45)
[2017-06-11] MEDS ORDERED: OLANZapine 5 mg Oral Disintegrating Tab PO SCH (09:00)
--- NOTE | 2017-06-12 08:37 | Discharge Summary ---
DATE OF DISCHARGE: 06/11/2017 THE PATIENT'S AGE: 62. SEX: Female. PHYSICIAN: Arina Diaz M.D., M.P.H. FINAL DIAGNOSIS: Major depression, severe, recurrent, with psychotic features. REASON FOR HOSPITALIZATION: The patient was admitted to the hospital because of agitation and because of aggressive behavior as well as depressed mood and the patient was refusing to drink or to eat in the [facility] where she was living and was resisting care and she was feeling hopeless and helpless. HOSPITAL COURSE: The patient continued to be irritable and agitated. The patient also was restless and anxious. The patient also continued to appear resisting care and she has episodes of anger and irritability with mood swings and also with difficulty expressing herself or her feelings. Gradually, the patient's affect was slightly brighter. The patient was not as irritable or as agitated. Also, she was compliant with taking her medication. The patient was accepted in [facility] and she was discharged from the hospital and she was not suicidal or homicidal. AFTER DISCHARGE PLANS: The patient discharged from the hospital and went to [facility] with plans to follow up there with their psychiatrist. EXPECTED OUTCOME AFTER DISCHARGE: Fair if the patient continued to take her psychotropic medications and follow up with discharge plans. [facility]# [id number]
--- NOTE | 2017-06-12 09:38 | Progress Notes ---
DATE: 06/09/2017 Chart reviewed and the patient interviewed. Also, discussed the patient's condition with the staff and reviewed records and labs. The patient is still extremely angry and yelling and screaming and cursing the staff and other patients. The patient also is verbally abusing and using foul language. She also is refusing to eat. The patient also refused to take medications because of her confusion. Otherwise, the patient is still in angry and in irritable mood and needs close monitoring and she still can be dangerous to others. ASSESSMENT: The patient is still psychotic. TREATMENT PLAN: We will continue to monitor her behavior and her condition closely and continue adjusting psychotropic medications and working on her compliance with medications and her refusal for treatment to be cooperative with the staff. JOB# [id number]
--- NOTE | 2017-06-12 10:40 | Progress Notes ---
DATE: 06/10/2017 The patient's affect is brighter. The patient is sleeping better. The patient also is calmer and less irritable and less agitated. She also is compliant with taking her medications with no side effects of medications. Also, block and case maker working on discharge plans and placement issue. ASSESSMENT: The patient is showing improvement and not suicidal or homicidal. TREATMENT PLAN: We will continue monitoring her behavior and her condition closely. Also continue adjusting psychotropic medications. Also, working on discharge plans if placement is available. [facility]# [id number]
--- NOTE | 2017-06-12 11:30 | Progress Notes ---
DATE: 06/11/2017 SUBJECTIVE: Chart reviewed and the patient interviewed. Also, discussed the patient's condition with the staff and reviewed records and labs. The patient is still in irritable mood and she is still hostile. She also is still easily agitated and in irritable mood. She also is still not cooperative with the staff and she is still shouting and using foul language at times and easily agitated. Otherwise, the patient is in angry mood and refusing to take medications. ASSESSMENT: The patient is still psychotic and still can be dangerous to others. TREATMENT PLAN: Continue to monitor her behavior and her condition closely. Also, we will start the patient on Zyprexa Zydis 5 mg twice a day. Hopefully, get her to be complied with taking it. Also, continue to monitor her behavior closely and continue to follow up. [facility]# [id number]
== END 2017-06-11 15:50 | DRG 885 ==
LOC: GERO 20:00
PROVIDERS: ADMIT Psychiatry & Neurology Psychiatry; ATTEND Psychiatry & Neurology Psychiatry
DX: F33.3 Major depressive disorder, recurrent, severe with psychotic symptoms (principal); E11.9 Type 2 diabetes mellitus without complications; I10 Essential (primary) hypertension; I25.10 Atherosclerotic heart disease of native coronary artery without angina pectoris; E66.9 Obesity, unspecified; J44.9 Chronic obstructive pulmonary disease, unspecified; K21.9 Gastro-esophageal reflux disease without esophagitis; Z88.1 Allergy status to other antibiotic agents; Z68.39 Body mass index [BMI] 39.0-39.9, adult; Z90.49 Acquired absence of other specified parts of digestive tract; Z90.710 Acquired absence of both cervix and uterus; Z95.1 Presence of aortocoronary bypass graft; Z88.5 Allergy status to narcotic agent; Z88.6 Allergy status to analgesic agent
CPT/HCPCS: 82948-90; 94760; J1815; Q0162; Z7610